=== PATIENT | female | born 1975 | race Caucasian/White ===

== ENCOUNTER → 2021-04-05 | Outpatient (CLI) | payer BC ==
[2021-04-06 08:15] LABS: RHEUMATOID ARTHRITIS FACTOR <10.0 IU/mL (0.0-13.9); VITAMIN D, 25-HYDROXY 25.2 ng/mL (30.0-100.0)
[2021-04-06 10:15] LABS: HBSAG SCREEN Negative (Negative); HEP B CORE AB, TOT Negative (Negative)
[2021-04-06 12:15] LABS: HCV AB <0.1 (0.0-0.9)
[2021-04-07 00:07] LABS: CCP ANTIBODIES IGG/IGA 7 units (0-19)
[2021-04-08 05:12] LABS: QUANTIFERON MITOGEN VALUE >10.00 IU/mL (.); QUANTIFERON-TB GOLD PLUS Negative (Negative)
== END ==
LOC: LAB 10:15
PROVIDERS: Nurse Practitioner Family
DX: Z11.59 Encounter for screening for other viral diseases (principal); M25.50 Pain in unspecified joint; R53.83 Other fatigue; M79.10 Myalgia, unspecified site; D89.9 Disorder involving the immune mechanism, unspecified; R76.8 Other specified abnormal immunological findings in serum
CPT/HCPCS: 36415; 83520; 84439; 84443; 85652; 86140; 86200; 86431; 86704; 86803; 87340

== ENCOUNTER → 2021-07-04 | Outpatient (CLI) | payer BC ==
[2021-07-04 17:14] LABS: HEMOGLOBIN 13.4 gm/dl (12.3-15.3); RED BLOOD COUNT 4.25 M/UL (4.00-5.10)
[2021-07-04 17:36] LABS: BUN/CREATININE RATIO 12 (0-10)
[2021-07-06 13:14] LABS: ACTIN (SMOOTH MUSCLE) ANTIBODY 5 Units (0-19); MITOCHONDRIAL (M2) ANTIBODY <20.0 Units (0.0-20.0)
== END ==
LOC: LAB 16:07
PROVIDERS: Internal Medicine
DX: R76.8 Other specified abnormal immunological findings in serum (principal); M34.1 CR(E)ST syndrome; R53.83 Other fatigue
CPT/HCPCS: 36415; 80053; 83516; 84439; 84443; 85025

== ENCOUNTER → 2021-09-18 | Outpatient (CLI) | payer BC | LOC: HEART 5 09:03 | DX: R06.09 Other forms of dyspnea (principal); R76.8 Other specified abnormal immunological findings in serum | CPT/HCPCS: 94010 ==

== ENCOUNTER → 2021-10-17 | Outpatient (CLI) | payer BC | LOC: CT 09-27 08:00 → ECHO 09-27 08:30 → CT 13:00 | DX: R76.8 Other specified abnormal immunological findings in serum (principal); R06.09 Other forms of dyspnea | CPT/HCPCS: ECHO; 71250; 93306 ==